=== PATIENT | female | born 1990 | race Caucasian/White ===

== ENCOUNTER 2022-09-15 15:10 | Emergency (ER) | payer MEDICAID ==
[~2022-09-15] VITALS: Ht 160 cm; Wt 54.0 kg
[2022-09-15 15:26] VITALS: BP 126/78
[2022-09-15] MEDS ORDERED: morphine INJ 10 MG/ML 1ML (SYR OR VIAL) IVP STA (15:27)
--- NOTE | 2022-09-15 15:27 | ED General ---
General Chief Complaint: General Problems/Pain Stated Complaint: STABBING PAIN ON LEFT SIDE OF ABDOMEN AND BACK Source of Information: Patient Exam Limitations: No Limitations History of Present Illness Date Seen by Provider: Sep 15, 2022 Time Seen by Provider: 15:13 Initial Comments 32-year-old female with past medical history of kidney stones coming in due to left flank pain radiating to her left lower quadrant. Started around 7 PM last night, intermittent, sharp, stabbing. She states it feels a little bit different than her prior kidney stones. Has tried Tylenol and ibuprofen for it with the last medication being this morning which was Tylenol. These have barely taken the edge off. Denies any vomiting, diarrhea, chest pain, shortness of breath, fever, chills, dysuria, vaginal bleeding, or any other concerns. LMP was 2 weeks ago. Allergies and Home Medications Allergies Coded Allergies: No Known Drug Allergies (Unverified , 09/15/22) Patient Home Medication List Home Medication List Reviewed: Yes Review of Systems Review of Systems Constitutional: No fever EENTM: no symptoms reported Respiratory: no symptoms reported Cardiovascular: no symptoms reported Gastrointestinal: see HPI, nausea; No vomiting Genitourinary: see HPI Musculoskeletal: no symptoms reported Skin: no symptoms reported Psychiatric/Neurological: No Symptoms Reported Hematologic/Lymphatic: No Symptoms Reported Past Olvbymu-Niabfe-Pkfoui Hx Patient Social History Tobacco Use?: No Substance use?: No Alcohol Use?: No Past Medical History Surgery/Hospitalization HX: Gastric bypass, cholecystectomy, tubal ligation Surgeries: Yes Tubal Ligation Physical Exam Vital Signs Vital Signs - First Documented 09/15/22 15:26 Temp 37.6 Pulse 108 Resp 18 B/P (MAP) 126/78 (94) Pulse Ox 99 O2 Delivery Room Air Capillary Refill : Height, Weight, BMI Height: '" Weight: lbs. oz. kg; BMI Method: General Appearance: No Apparent Distress, WD/WN Eyes: Bilateral Eye Normal Inspection HEENT: PERRL/EOMI, Normal ENT Inspection, Pharynx Normal Neck: Full Range of Motion, Normal Inspection, Non Tender, Supple Respiratory: Chest Non Tender, Lungs Clear, Normal Breath Sounds, No Accessory Muscle Use, No Respiratory Distress Cardiovascular: Regular Rate, Rhythm, No Edema, Normal Peripheral Pulses Gastrointestinal: Normal Bowel Sounds, Non Tender, Soft; No Distended, No Guarding Back: Normal Inspection, CVA Tenderness (L); No CVA Tenderness (R) Extremity: Normal Capillary Refill, Normal Inspection, Normal Range of Motion, Non Tender, No Calf Tenderness, No Pedal Edema Neurologic/Psychiatric: Alert, No Motor/Sensory Deficits, Normal Mood/Affect Skin: Normal Color, Warm/Dry Progress/Results/Core Measures Suspected Sepsis SIRS Temperature: Pulse: Respiratory Rate: Laboratory Tests 09/15/22 15:22: White Blood Count 5.8 Blood Pressure / Mean: Laboratory Tests 09/15/22 15:22: Creatinine 0.79, Platelet Count 269, Total Bilirubin 0.4 Results/Orders Lab Results Laboratory Tests Test 09/15/22 15:17 09/15/22 15:22 Range/Units Urine Color YELLOW Urine Clarity SL CLOUDY Urine pH 6.5 5-9 Urine Specific [place] 1.025 H 1.016-1.022 Urine Protein 1+ H NEGATIVE Urine Glucose (UA) NEGATIVE NEGATIVE Urine Ketones NEGATIVE NEGATIVE Urine Nitrite NEGATIVE NEGATIVE Urine Bilirubin NEGATIVE NEGATIVE Urine Urobilinogen 1.0 < = 1.0 MG/DL Urine Leukocyte Esterase TRACE H NEGATIVE Urine RBC (Auto) 3+ H NEGATIVE Urine RBC 50-100 H /HPF Urine WBC 10-25 H /HPF Urine Squamous Epithelial Cells NONE /HPF Urine Crystals NONE /LPF Urine Bacteria TRACE /HPF Urine Casts NONE /LPF Urine Mucus NEGATIVE /LPF Urine Culture Indicated YES White Blood Count 5.8 4.3-11.0 10^3/uL Red Blood Count 4.68 3.80-5.11 10^6/uL Hemoglobin 13.8 11.5-16.0 g/dL Hematocrit 41 35-52 % Mean Corpuscular Volume 88 80-99 fL Mean Corpuscular Hemoglobin 30 25-34 pg Mean Corpuscular Hemoglobin Concent 34 32-36 g/dL Red Cell Distribution Width 12.3 10.0-14.5 % Platelet Count 269 130-400 10^3/uL Mean Platelet Volume 11.2 9.0-12.2 fL Immature Granulocyte % (Auto) 0 % Neutrophils (%) (Auto) 56 42-75 % Lymphocytes (%) (Auto) 36 12-44 % Monocytes (%) (Auto) 7 0-12 % Eosinophils (%) (Auto) 1 0-10 % Basophils (%) (Auto) 1 0-10 % Neutrophils # (Auto) 3.2 1.8-7.8 10^3/uL Lymphocytes # (Auto) 2.1 1.0-4.0 10^3/uL Monocytes # (Auto) 0.4 0.0-1.0 10^3/uL Eosinophils # (Auto) 0.0 0.0-0.3 10^3/uL Basophils # (Auto) 0.0 0.0-0.1 10^3/uL Immature Granulocyte # (Auto) 0.0 0.0-0.1 10^3/uL Sodium Level 139 135-145 MMOL/L Potassium Level 3.5 L 3.6-5.0 MMOL/L Chloride Level 105 98-107 MMOL/L Carbon Dioxide Level 24 21-32 MMOL/L Anion Gap 10 5-14 MMOL/L Blood Urea Nitrogen 8 7-18 MG/DL Creatinine 0.79 0.60-1.30 MG/DL Estimat Glomerular Filtration Rate 101 BUN/Creatinine Ratio 10 Glucose Level 103 70-105 MG/DL Calcium Level 8.6 8.5-10.1 MG/DL Corrected Calcium 8.4 L 8.5-10.1 MG/DL Total Bilirubin 0.4 0.1-1.0 MG/DL Aspartate Amino Transf (AST/SGOT) 35 H 5-34 U/L Alanine Aminotransferase (ALT/SGPT) 25 0-55 U/L Alkaline Phosphatase 146 H 40-136 U/L Total Protein 6.8 6.4-8.2 GM/DL Albumin 4.2 3.2-4.5 GM/DL Lipase 30 8-78 U/L My Orders Orders - NILDA UMANZOR MD Ct Abdomen/Pelvis Wo (09/15/22 15:24) Cbc With Automated Diff (09/15/22 15:24) Comprehensive Metabolic Panel (09/15/22 15:24) Lipase (09/15/22 15:24) Ua Culture If Indicated (09/15/22 15:24) Ed Iv/Invasive Line Start (09/15/22 15:24) Urine Bedside (09/15/22 15:24) Ketorolac Injection (Toradol Injection) (09/15/22 15:30) Morphine Injection (Morphine Injection (09/15/22 15:27) Ondansetron Injection (Zofran Injectio (09/15/22 15:30) Urine Culture (09/15/22 15:17) Medications Given in ED Current Medications Medications Dose Ordered Sig/Miranda Route Start Time Stop Time Status Last Admin Dose Admin Ketorolac Tromethamine 15 mg ONCE ONCE IVP 09/15/22 15:30 09/15/22 15:31 DC 09/15/22 15:34 15 MG Ondansetron HCl 4 mg ONCE ONCE IVP 09/15/22 15:30 09/15/22 15:31 DC 09/15/22 15:34 4 MG Vital Signs/I&O 09/15/22 15:26 Temp 37.6 Pulse 108 Resp 18 B/P (MAP) 126/78 (94) Pulse Ox 99 O2 Delivery Room Air Capillary Refill : Progress Note : Progress Note 32-year-old female with above history coming in due to left flank pain radiating to the left lower quadrant. ABCs were intact and vitals were stable on presentation. Physical exam with left flank tenderness but no abdominal tenderness. An IV was placed and basic labs were obtained. She has a trace elevated AST and alk phos, normal white blood cell count, normal creatinine. Urinalysis with blood and white blood cells. CT with multiple bilateral kidney stones but nothing obstructing. She also has a liver mass that was visualized with unclear chronicity. I suspect the patient had a kidney stone that passed earlier given the severity of pain and the blood in her urine with a faby amount of stone she had present in her kidneys. She was given morphine here as well as Zofran with improvement in her pain. I discussed the liver mass extensively with the patient, and she last had a CT scan in 2018, and she was never made aware that she ever had a liver mass before. I discussed that she needs to have a special MRI evaluating this which she is agreeable to. She will call her PCP tomorrow to have this evaluated. I believe she is otherwise stable for discharge with outpatient follow-up. She was sent home with strict return precautions. Prescription pain medicines were sent to the pharmacy Diagnostic Imaging Diagonstic Imaging: CT (abd/pelvis) Comments NAME: CARISSA MCCLAIN Brianna [facility] REC#: [id number] PT STATUS: REG ER : 1990 PHYSICIAN: NILDA UMANZOR MD ADMIT DATE: 09/15/22/ER FS Draft Date of Exam:09/15/22 CT ABDOMEN/PELVIS WO PROCEDURE: CT abdomen and pelvis without contrast. TECHNIQUE: Multiple contiguous axial images were obtained through the abdomen and pelvis without the use of intravenous contrast. Auto Exposure Controls were utilized during the CT exam to meet ALARA standards for radiation dose reduction. INDICATION: Left flank pain. COMPARISON: None. FINDINGS: This patient has extensive bilateral medullary nephrocalcinosis and multiple bilateral renal stones. The largest calculus is within the unobstructed left renal pelvis measuring 1.7 x 1.3 cm in axial plane with a cephalocaudal height of 1.8 cm. There is no hydronephrosis and no perinephric or periureteric edema or stranding. No radiodense ureteral or bladder calculus. The uterus, adnexa and unopacified urinary bladder unremarkable. There is no ascites, abscess, hematoma or acute fluid collection. There is no appendicitis or diverticulitis. There is no abnormal fecal load. There is no bowel obstruction. Spleen, adrenals and pancreas unremarkable. There are postsurgical changes of a gastric bypass without evidence for its complication. The gallbladder is absent. No pathological biliary ductal dilatation. There is a intraparenchymal mass in the right hepatic lobe posteriorly of uncertain etiology. Given the prior surgery, it is likely that outside CTs exist, if these are obtainable their submission is encouraged and an addendum addressing stability or change would be provided upon receipt as this may be a chronic benign finding. In the absence of confirmatory priors to assess for stability, nonemergent outpatient hepatic protocol MRI would be recommended for further characterization. This mass measures 6.7 x 4.2 cm. The liver otherwise normal. IMPRESSION: 1. Extensive medullary nephrocalcinosis and bilateral nephrolithiasis with the largest stone in the left renal pelvis but no hydronephrosis, ureteral stone or perinephric edema or stranding. 2. A large right lobe liver mass is indeterminate. If we cannot confirm its long-term stability a nonemergent outpatient hepatic protocol MRI recommended. 3. Previous gastric bypass without apparent complication. Normal appendix. No diverticulitis. 4. No adnexal abnormality, ascites or fluid collection. Dictated on workstation # [id number] Dict: 09/15/22 1544 Trans: 09/15/22 1602 [facility] [id number] Interpreted by: CRISTINA GOODWIN Electronically signed by: Departure Impression Primary Impression: Kidney stones Additional Impression: Liver mass Disposition: 01 HOME, SELF-CARE Condition: Stable Departure-Patient Inst. Decision time for Depature: 16:19 Referrals: NO,LOCAL PHYSICIAN (PCP/Family) Primary Care Physician Patient Instructions: Kidney Stone, Adult ED Add. Discharge Instructions: You do have numerous kidney stones on your CT imaging on both kidneys. I suspect a kidney stone passed on your left side earlier today as she did have blood in your urine. Pain medicines will be sent to your pharmacy that you can take as needed. Additionally, you do have a mass on your liver which we are unsure what it is at this time. We recommend getting a special MRI to further evaluate this. Please call your primary physician tomorrow to get this scheduled. Scripts Ondansetron (Ondansetron Odt) 4 Mg Tab.rapdis 4 MG SL Q6H PRN for NAUSEA/VOMITING for 5 Days, #20 TAB Prov: NILDA UMANZOR MD 09/15/22 Ketorolac Tromethamine (Ketorolac Tromethamine) 10 Mg Tablet 10 MG PO Q8H for 3 Days, #9 TAB Prov: NILDA UMANZOR MD 09/15/22 Oxycodone HCl (Oxycodone HCl) 5 Mg Tablet 5 MG PO Q8H PRN for PAIN-SEVERE (8-10) for 3 Days, #9 TAB Prov: NILDA UMANZOR MD 09/15/22 Work/School Note: Work Release Form Date Seen in the Emergency Department: Sep 15, 2022 Return to Work: Sep 17, 2022 Restrictions: No Restrictions NILDA UMANZOR MD Sep 15, 2022 15:27
[2022-09-15 15:30] LABS: BASOPHILS % (AUTO) 1 % (0-10); EOSINOPHILS % (AUTO) 1 % (0-10); HEMATOCRIT 41 % (35-52); HEMOGLOBIN 13.8 g/dL (11.5-16.0); LYMPHOCYTES # (AUTO) 2.1 10^3/uL (1.0-4.0); LYMPHOCYTES % (AUTO) 36 % (12-44); MEAN CORPUSCULAR HEMOGLOBIN 30 pg (25-34); MEAN CORPUSCULAR HGB CONC 34 g/dL (32-36); MEAN CORPUSCULAR VOLUME 88 fL (80-99); MEAN PLATELET VOLUME 11.2 fL (9.0-12.2); MONOCYTES # (AUTO) 0.4 10^3/uL (0.0-1.0); MONOCYTES % (AUTO) 7 % (0-12); NEUTROPHILS # (AUTO) 3.2 10^3/uL (1.8-7.8); NEUTROPHILS % (AUTO) 56 % (42-75); PLATELET COUNT 269 10^3/uL (130-400); WHITE BLOOD COUNT 5.8 10^3/uL (4.3-11.0)
[2022-09-15] MEDS ORDERED: KETOROLAC 15 MG/ML VIAL IVP ONE (15:30)
[2022-09-15] MEDS ORDERED: ONDANSETRON 4 MG/2 ML (SDV) Z0FRAN IVP ONE (15:30)
[2022-09-15 15:31] LABS: BILIRUBIN,URINE NEGATIVE (NEGATIVE); CLARITY,URINE SL CLOUDY; COLOR,URINE YELLOW; GLUCOSE, URINE (UA) NEGATIVE (NEGATIVE); KETONES,URINE NEGATIVE (NEGATIVE); LEUKOCYTE ESTERASE ,URINE TRACE (NEGATIVE); NITRITE,URINE NEGATIVE (NEGATIVE); PH,URINE 6.5 (5-9); PROTEIN,URINE 1+ (NEGATIVE)
[2022-09-15 15:40] LABS: BACTERIA,URINE TRACE /HPF; RBC,URINE 50-100 /HPF
[2022-09-15 15:51] LABS: ALBUMIN 4.2 GM/DL (3.2-4.5); BILIRUBIN,TOTAL 0.4 MG/DL (0.1-1.0); CALCIUM 8.6 MG/DL (8.5-10.1); CREATININE SERUM 0.79 MG/DL (0.60-1.30); POTASSIUM 3.5 MMOL/L (3.6-5.0); TOTAL PROTEIN 6.8 GM/DL (6.4-8.2)
--- NOTE | 2022-09-15 16:04 | Diagnostic Imaging Report ---
PROCEDURE: CT abdomen and pelvis without contrast. TECHNIQUE: Multiple contiguous axial images were obtained through the abdomen and pelvis without the use of intravenous contrast. Auto Exposure Controls were utilized during the CT exam to meet ALARA standards for radiation dose reduction. INDICATION: Left flank pain. COMPARISON: None. FINDINGS: This patient has extensive bilateral medullary nephrocalcinosis and multiple bilateral renal stones. The largest calculus is within the unobstructed left renal pelvis measuring 1.7 x 1.3 cm in axial plane with a cephalocaudal height of 1.8 cm. There is no hydronephrosis and no perinephric or periureteric edema or stranding. No radiodense ureteral or bladder calculus. The uterus, adnexa and unopacified urinary bladder unremarkable. There is no ascites, abscess, hematoma or acute fluid collection. There is no appendicitis or diverticulitis. There is no abnormal fecal load. There is no bowel obstruction. Spleen, adrenals and pancreas unremarkable. There are postsurgical changes of a gastric bypass without evidence for its complication. The gallbladder is absent. No pathological biliary ductal dilatation. There is a intraparenchymal mass in the right hepatic lobe posteriorly of uncertain etiology. Given the prior surgery, it is likely that outside CTs exist, if these are obtainable their submission is encouraged and an addendum addressing stability or change would be provided upon receipt as this may be a chronic benign finding. In the absence of confirmatory priors to assess for stability, nonemergent outpatient hepatic protocol MRI would be recommended for further characterization. This mass measures 6.7 x 4.2 cm. The liver otherwise normal. IMPRESSION: 1. Extensive medullary nephrocalcinosis and bilateral nephrolithiasis with the largest stone in the left renal pelvis but no hydronephrosis, ureteral stone or perinephric edema or stranding. 2. A large right lobe liver mass is indeterminate. If we cannot confirm its long-term stability a nonemergent outpatient hepatic protocol MRI recommended. 3. Previous gastric bypass without apparent complication. Normal appendix. No diverticulitis. 4. No adnexal abnormality, ascites or fluid collection. Dictated by: Dictated on workstation # [id number]
[2022-09-15] MEDS ORDERED: KETO10TA PO (16:21)
[2022-09-15] MEDS ORDERED: ONDA4TAB11 SL (16:21)
[2022-09-15] MEDS ORDERED: OXYC5TAB PO (16:21)
== END 2022-09-15 16:30 | disposition home or self-care (01) ==
LOC: ER FS 15:15
DX: N20.0 Calculus of kidney (principal); R16.0 Hepatomegaly, not elsewhere classified
CPT/HCPCS: 36415; 74176; 80053; 81000; 83690; 84703; 85025; 87088